=== PATIENT | female | born 1970 | race Two or more races ===

== ENCOUNTER 2018-08-24 11:51 | Emergency (ER) | payer OTHER ==
[~2018-08-24] VITALS: Ht 165.1 cm; Wt 72.7 kg
[2018-08-24] MEDS ORDERED: LEVO100 PO (12:31)
[2018-08-24 15:15] VITALS: BP 133/74
[2018-08-24] MEDS ORDERED: PERTUSS(ACELL),DIPH,TET VAC/PF 0.5 ML VIAL IM ONE (15:15)
[2018-08-25 07:06] LABS: HIV 1-2 SCREEN 4TH GEN W/RFLX Non Reactive (Non Reactive)
== END 2018-08-24 15:55 | disposition home or self-care (01) ==
LOC: EMS 11:51
DX: S69.92XA Unspecified injury of left wrist, hand and finger(s), initial encounter (principal); E03.9 Hypothyroidism, unspecified; W46.0XXA Contact with hypodermic needle, initial encounter; Y93.89 Activity, other specified; Y92.89 Other specified places as the place of occurrence of the external cause; Y99.8 Other external cause status
CPT/HCPCS: 80074; 86592; 87389; 90471; 90715